=== PATIENT | female | born 1960 | race Caucasian/White ===

== ENCOUNTER 2019-04-05 06:48 | Day surgery (SDC) | payer BC, OTHER ==
[~2019-04-05] VITALS: Ht 149.9 cm; Wt 69.1 kg
[~2019-04-05 06:48] MED LIST: NO MEDS.
[2019-04-05 08:08] VITALS: Ht 149.9 cm; Wt 69.1 kg
[2019-04-05 08:20] VITALS: BP 186/80; PULSE 70; RESP 18
[2019-04-05 09:36] VITALS: BP 156/68; PULSE 65; RESP 16
[2019-04-05] MEDS ORDERED: MIDAZOLAM 1 MG/ML 2 ML INJ ONE ×2 (10:14→10:15)
[2019-04-05] MEDS ORDERED: FENTAnyl 50 MCG/ML VIAL ONE (10:15)
== END 2019-04-05 09:59 | disposition home or self-care (01) ==
LOC: GIL 06:48
PROVIDERS: ATTEND Internal Medicine Gastroenterology
DX: Z12.11 Encounter for screening for malignant neoplasm of colon (principal); K64.8 Other hemorrhoids; K64.4 Residual hemorrhoidal skin tags
CPT/HCPCS: 45378; J2250; J3010